=== PATIENT | female | born 1980 | race Caucasian/White ===

== ENCOUNTER → 2021-12-17 | Outpatient (CLI) | payer BC | LOC: MC.RAD 09:47 | DX: N63.20 Unspecified lump in the left breast, unspecified quadrant (principal); Z80.3 Family history of malignant neoplasm of breast ==

== ENCOUNTER → 2022-07-10 | Outpatient (REF) | payer BC | LOC: ZCOL.LAB 11:32 | DX: R06.02 Shortness of breath (principal); R05.9 Cough, unspecified ==